=== PATIENT | female | born 1960 | race Caucasian/White ===

== ENCOUNTER 2016-06-23 12:13 | Day surgery (SDC) | payer OTHER, SELFPAY ==
[2016-06-20 11:32] LABS: BASOPHILS 0.2 %; BASOPHILS ABSOLUTE 0.01 10/3/uL (0.0-0.16); EOSINOPHILS 2.3 %; EOSINOPHILS ABSOLUTE 0.14 10/3/uL (0.0-0.53); HEMATOCRIT 44.6 % (36.0-48.0); HEMOGLOBIN 14.3 g/dL (12.0-16.0); LYMPHOCYTES ABSOLUTE 1.75 10/3/uL (0.67-4.30); MEAN CORPUS HGB CONC 32.1 g/dL (32.0-36.0); MEAN CORPUSCULAR HEMOGLOB 30.2 pg (26.0-34.0); MEAN PLATELET VOLUME 10.6 fL (9.2-13.0); MONOCYTES 5.1 %; MONOCYTES ABSOLUTE 0.31 10/3/uL (0.21-1.20); NEUTROPHILS 63.4 %; NEUTROPHILS ABSOLUTE 3.82 10/3/uL (2.02-8.40); PLATELET COUNT 190 10/3/uL (150-400); RBC DISTRIBUTION WIDTH 14.1 % (12.0-16.0); RED CELL COUNT 4.74 10/6/uL (4.0-5.6)
[2016-06-20 11:34] LABS: MEAN CORPUSCULAR VOLUME 94.1 fL (80-100)
[2016-06-20 11:35] LABS: MANUAL DIFF NO %
[2016-06-20 11:38] LABS: INTERNATIONAL NORMAL RATI 0.9 UNITS (-); PARTIAL THROMBO TIME 24.6 SEC (22.5-37.2); PROTIME (NOT ORD) 12.2 SEC (12.0-14.5)
[2016-06-20 11:45] LABS: CALCIUM, SERUM 9.2 MG/DL (8.5-10.4); CHLORIDE, SERUM 105 MMOL/L (96-112); CO2 (CARBON DIOXIDE) 28 MMOL/L (24-34); CREATININE 0.77 MG/DL (0.55-1.02); GFR AFRICAN AMERICAN 101 ML/MIN (>=60); GFR NON AFRICAN AMERICAN 88 ML/MIN (>=60); GLUCOSE, SERUM 211 MG/DL (60-99); POTASSIUM, SERUM 3.7 MMOL/L (3.5-5.3); SODIUM, SERUM 141 MMOL/L (135-148)
[2016-06-20 11:46] LABS: BUN (BLOOD UREA NITROGEN) 14 MG/DL (6-23)
--- NOTE | ~2016-06-23 | OP ---
Record Of Operation [facility] [address] [place]. [address] NAME: MARNI CHAPPELL : 64 [place] [facility] [place] [id number] AGE: 56 ADM/REG DATE : 06/23/16 MR#: [id number] REPORT SERV DATE: 06/23/16 DICTATED BY: BETITO WHELAN DATE: 06/23/16 REPORT STATUS : Draft TRANSCRIBED BY: MODL DATE: 06/23/16 DATE OF PROCEDURE: 06/23/2016 PREOPERATIVE DIAGNOSIS: A 2 cm right renal pelvic calculus. POSTOPERATIVE DIAGNOSIS: A 2 cm right renal pelvic calculus. PROCEDURE PERFORMED: Cystoscopy, right retrograde pyelogram, right flexible ureterorenoscopy, holmium laser stone fragmentation, and stent placement. SURGEON: Betito Whelan M.D. ANESTHESIA: General. ESTIMATED BLOOD LOSS: 5 mL. INDICATIONS: This is a 56-year-old white female, recently presenting with a large right renal pelvic stone measuring about 2 cm in size. After discussion of management and options, we elected to proceed with endoscopic management. Risks of infection, bleeding, failure, need for further surgery, prolonged stenting, etc. were reviewed. PROCEDURE IN DETAIL: The patient was taken to the operating room and underwent a general anesthetic. She was placed in the lithotomy position on the table, and her external genitalia were sterilely prepped and draped. The 22-Mozambican cystoscope sheath with 30-degree lens was inserted under direct vision per urethra with the aid of the video monitor. The bladder was inspected and the mucosa was normal throughout. There was a moderate cystocele present. Single orifices were recognized bilaterally both of which lie very close to the bladder neck. The right orifice was cannulated with a 5-Mozambican open-ended catheter and a retrograde pyelogram was obtained showing a normal caliber ureter, and a large stone was noted to occupying most of the right renal pelvis. An 0.038 guidewire was easily advanced up into the kidney under fluoroscopic guidance, and an 11/13-Mozambican ureteral access sheath with obturator was advanced over the guidewire up into the proximal ureter without difficulty. A second guidewire was placed up through the access sheath and the sheath and obturator were then replaced over one of the two guidewires leaving the other in place as a safety wire. The flexible ureteroscope was then advanced through the access sheath and on up into the collecting system of the kidney were medially a large oblong yellow stone was encountered. The collecting system was inspected and there were no other significant stones noted. The 200 micron laser fiber was used on dusting mode and I was able to fragment the entire calculus down into small pieces and/or dust. The stone was soft and fragmented easily. After we thought, we had fragmented the entire stone, there was quite a bit of stone debris within the collecting system of the kidney, we looked through this carefully for large stones, and really were not able to see any. Following diligent reinspection of the renal collecting system, the ureteroscope was withdrawn down through the ureter under direct vision, with no significant findings noted there. The cystoscope was reinserted over the previously placed guidewire and a 7-Mozambican x 28 cm Contour stent was advanced over the guidewire such that the proximal end of the stent was observed to coil in the pelvis of the Record Of Operation [address] [address] NAME: MARNI CHAPPELL : 64 [place] [facility] [place]#: [id number] AGE: 56 ADM/REG DATE : 06/23/16 MR#: [id number] REPORT SERV DATE: 06/23/16 DICTATED BY: BETITO WHELAN DATE: 06/23/16 REPORT STATUS : Draft TRANSCRIBED BY: KATHLEEN DATE: 06/23/16 kidney under fluoroscopic guidance, and the distal end of the stent was visually observed to coil in the bladder, following removal of the guidewire. The bladder was drained. All endoscopic apparatus was removed and the patient was taken to recovery in stable condition. DS/MODL Betito Whelan M.D. / [id number] CC: Radha Vargas M.D.
[~2016-06-23 12:13] MED LIST: ALEVE220 MG PO; ASA5GR PO; BEN25 PO; CARD120 PO; DEPO-PROVER150 MG/ML IM; DIABETA5 PO; FARXIGA5 PO; FISH-EPA1000 MG PO; GLUCPH PO; LAN125 PO; MEVACOR10 MG PO; MOBIC7.5 PO; PLAVIX PO; PRIN5 PO; RYTHMOL150 MG PO; ULTRAM50 PO; ZOCOR20 PO
== END 2016-06-23 18:37 | disposition home or self-care (01) ==
LOC: SDC 12:13
PROVIDERS: Urology
PROC: 0T768DZ Dilation of Right Ureter with Intraluminal Device, Via Natural or Artificial Opening Endoscopic (ICD-10-PCS; 2016-06-23)
PROC: 0TF38ZZ Fragmentation in Right Kidney Pelvis, Via Natural or Artificial Opening Endoscopic (ICD-10-PCS; principal; 2016-06-23 13:45)
DX: N20.0 Calculus of kidney (principal); I48.91 Unspecified atrial fibrillation; I10 Essential (primary) hypertension; F17.200 Nicotine dependence, unspecified, uncomplicated; J45.909 Unspecified asthma, uncomplicated; E11.9 Type 2 diabetes mellitus without complications; E78.00 Pure hypercholesterolemia, unspecified; G43.909 Migraine, unspecified, not intractable, without status migrainosus; M19.90 Unspecified osteoarthritis, unspecified site; Z98.890 Other specified postprocedural states
CPT/HCPCS: 71020; 74420; 80048; 82962; 85025; 85610; 85730; 93005; A9270-GY; C1729; C1758; C2617; J1170; J2250; J2370; J2405; J2710; J3010; Q9967